=== PATIENT | male | born 1970 | race Caucasian/White ===

== ENCOUNTER 2024-09-01 06:50 | Day surgery (SDC) | payer OTHER ==
[2024-08-29 10:27] VITALS: BP 130/84
[~2024-09-01] VITALS: Ht 190.5 cm; Wt 134.1 kg
[~2024-09-01 06:50] MED LIST: CRESTOR40 MG NG; MIDAZOLAM HCL 5 MG/5 ML VIAL IV PRN; MULTI VITAMIN1 EACH PO; NEXIUM40 MG PO; VIT D2-K1 20-1259 ML PO; VITAMIN E OIL-V52 M1 TOP; fentaNYL citrate 100 MCG/2 ML VIAL IV PRN
[2024-09-01 06:59] VITALS: BP 139/78
[2024-09-01] MEDS ORDERED: LIDOCAINE HCL 1% 5 ML SDV INJ ONE (07:00)
[2024-09-01] MEDS ORDERED: LACTATED RINGER'S 1,000 ML IV SCH (07:00)
[2024-09-01] MEDS ORDERED: IBLOOD GLUCOSE TEST STRIP 1 EA TEST VI PRN (07:00)
--- NOTE | 2024-09-01 07:47 | NUR ---
VISITED DURING SPIRITUAL CARE ROUNDS. PT SUPPORTED BY SPOUSE IN ROOM. BOTH IN GOOD SPIRITS, STATE NO IMMEDIATE NEEDS. NAILHEAD SETTER PROVIDED SUPPORTIVE PRESENCE, HOSPITALITY, PRAYER. PT AND SPOUSE EXPRESSED GRATITUDE.
[2024-09-01] MEDS ORDERED: propofoL 200 MG/20 ML VIAL ONE ×2 (07:52→08:00)
[2024-09-01] MEDS ORDERED: LIDOCAINE HCL 2% 5 ML SDV ONE (08:00)
--- NOTE | 2024-09-01 08:32 | NUR ---
09/01/24 0832 RuddyLeticia PATIENT WAKES SUDDENLY. HOB IS ELEVATED. HE DENIES PAIN. HE REPOSITIONS HIMSELF ONTO HIS BACK AND TOLERATES THAT WELL. OXYGEN SATURATION IS 100% ON 5L VIA OM. OXYGEN IS DISCONTINUED AT THIS TIME.
[2024-09-01 08:49] VITALS: BP 138/89
--- NOTE | 2024-09-02 06:46 | OR ---
[facility] [address], [place] [address] Signed DATE OF OPERATION: 09/01/2024 SURGEON: Modesta Estrada MD PREOPERATIVE DIAGNOSES: 1. Personal history of colonic polyps in 2019 at age 53. 2. 3 mm polyp at base of cecum. 3. Minimal to moderate external hemorrhoids. PROCEDURE: Colonoscopy with hot biopsy. ESTIMATED BLOOD LOSS: None. INDICATIONS: Catarina is a 53-year-old obese gentleman, asked to see me for followup colonoscopy. 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 He was in [place], [place] for many years. In 2019 at the age of 48, he had a colonoscopy at [facility] with . He was quite confident he was told to follow up in 5 years. He thinks a polyp was removed, but his is not so sure. He said he is adopted as a baby and has no knowledge of his family history. He has no lower GI complaints. 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 He said he has no lower GI complaints. In the meantime, we have been trying to track down his records. I gave him a pamphlet on colonoscopy in the office. We reviewed the nature of the test. There is risk including, but not limited to gas bloating, crampy abdominal pain, bleeding, perforation requiring surgery and missed diagnosis. We also reviewed the written instructions for the bowel prep line by line. Also, he is a very large man with a very full face and a rather large mustache, very heavy chest and abdomen. He also has significant sleep apnea as well. Consequently, we asked for monitored anesthesia care with propofol infusion. That proved to be a velazquez decision today as he did need some airway control. In that regard, he did receive preoperative blood work and an EKG. He understands an adult person has to take him home afterwards. He had expressed understanding and wished to proceed. PROCEDURE IN DETAIL: Catarina was taken into our endoscopy suite and placed in the left lateral decubitus position. He was given monitored anesthesia care with propofol infusion. A digital rectal exam was performed. He has small to moderate circumferential external hemorrhoids. He had good sphincter tone. There were no masses. He is a large man, I could not reach his prostate gland. The adult colonoscope was introduced and advanced Electronically Signed By: MODESTA ESTRADA MD 09/02/24 0646 PATIENT NAME: CATARINA BANKS OPERATIVE REPORT DATE OF : 66 REPORT #: [id number] PHYSICIAN: MODESTA ESTRADA MD PCP: MARIAA PORRAS MD REPORT IS CONFIDENTIAL AND NOT TO BE RELEASED WITHOUT AUTHORIZATION [facility] [address], [place] [address] Signed all around into the cecum under direct visualization of the camera without difficulty. His prep was quite good. We could easily see the appendiceal orifice and the ileocecal valve. We removed a small 3 mm polyp from the base of the cecum with the hot biopsy forceps. The scope was then withdrawn. We took pictures throughout for photodocumentation. There was no pathology throughout the remainder of the colon or rectum. Upon retroflexion of the scope, there was no evidence of any additional pathology above the anal canal. After this, the gas was suctioned out and the colonoscope removed. Catarina tolerated the procedure quite well. RECOMMENDATIONS: Catarina can follow up in 7 to 14 days to review his results. Modesta Estrada MD ALB/MODL /[id number] cc: Dr. Mariaa Estrada MD Copies: MODESTA ESTRADA MD ~ Electronically Signed By: MODESTA ESTRADA MD 09/02/24 0646 PATIENT NAME: CATARINA BANKS OPERATIVE REPORT DATE OF : 66 REPORT #: [id number] PHYSICIAN: MODESTA ESTRADA MD PCP: MARIAA PORRAS MD REPORT IS CONFIDENTIAL AND NOT TO BE RELEASED WITHOUT AUTHORIZATION
--- NOTE | 2024-09-06 18:11 | PATH ---
[facility] [address] [place], [place] [address] Signed SPECIMEN(S): A CECUM COLON POLYP SPECIMEN SOURCE: A. CECUM COLON POLYP v CLINICAL HISTORY: History of polyps FINAL PATHOLOGIC DIAGNOSIS: Colon, cecum, polyp, biopsy: - Tubular adenoma. COMMENT: There is no evidence of high grade dysplasia or malignancy. TWK MICROSCOPIC EXAMINATION: Histologic sections of all submitted blocks are examined by light microscopy. These findings, together with the gross examination, support the pathologic diagnosis. GROSS DESCRIPTION: The specimen, labeled and designated "Winifred Zarate, cecum colon polyp," is received in formalin and consists of one lópez soft tissue fragment, 0.3 cm. Entirely submitted in (A1). AB (under the direct supervision of a pathologist) The Gross Description was prepared using a voice recognition system. The report was reviewed for accuracy; however, sound-alike word errors, addition and/or deletions may occur. If there is any question about this report, please contact Client Services. ADDITIONAL NOTES: Immunohistochemical and/or in situ hybridization studies if performed in this case included appropriate positive controls that reacted as expected. This test was developed and its performance characteristics determined by [facility]. It has not been cleared or approved by the U.S. Food and Drug Administration. The FDA has determined that such clearance or approval is not necessary. This test is used for clinical purposes. It should not be regarded as investigational or for research. [facility] is certified under the PATIENT NAME: CATARINA ZARATE PATHOLOGY DATE OF : 66 REPORT #: [id number] PHYSICIAN: ZENAIDA DELACRUZ PCP: DOMENICO PORRAS MD REPORT IS CONFIDENTIAL AND NOT TO BE RELEASED WITHOUT AUTHORIZATION [facility] [address] [place] [address] [place] [address] Signed Clinical Laboratory Improvement Amendments of 1988 (CLIA) as qualified to perform high complexity clinical laboratory testing. PERFORMING LABORATORY: Technical component was performed by [facility], [address] [place] [address] (CLIA# [id number]). Professional interpretation was performed by [facility], [facility] [place] [address] (CLIA#:[id number]). Diagnostician: Pepe Persaud MD Pathologist Electronically Signed 09/06/2024 Copies: ~ PATIENT NAME: CATARINA ZARATE PATHOLOGY DATE OF : 66 REPORT #: [id number] PHYSICIAN: ZENAIDA DELACRUZ PCP: DOMENICO PORRAS MD REPORT IS CONFIDENTIAL AND NOT TO BE RELEASED WITHOUT AUTHORIZATION
== END 2024-09-01 09:02 | disposition home or self-care (01) ==
LOC: DS 06:50
PROVIDERS: ATTEND Colon & Rectal Surgery
PROC: 0DBH8ZZ Excision of Cecum, Via Natural or Artificial Opening Endoscopic (ICD-10-PCS; principal; 2024-09-01 08:05)
DX: Z12.11 Encounter for screening for malignant neoplasm of colon (principal); D12.0 Benign neoplasm of cecum; K64.4 Residual hemorrhoidal skin tags; E78.5 Hyperlipidemia, unspecified; G47.33 Obstructive sleep apnea (adult) (pediatric); E66.9 Obesity, unspecified; Z68.39 Body mass index [BMI] 39.0-39.9, adult; Z79.899 Other long term (current) drug therapy; Z86.0100 Personal history of colon polyps, unspecified
CPT/HCPCS: 00811; J2003; J2704; J7121